=== PATIENT | female | born 1955 | race Hispanic/Latino ===

== ENCOUNTER 2023-09-27 12:16 | Inpatient (IN) | payer OTHER ==
[~2023-09-27] VITALS: Ht 154.9 cm; Wt 64.9 kg
[2023-09-27] MEDS: SODIUM CHLORIDE 0.9% 1000ML 1,000 ML IV STA (12:44)
[2023-09-27] MEDS: DICYCLOMINE HCL 20 MG/2 ML VIAL IM ONE (12:45)
[2023-09-27] MEDS: ONDANSETRON HCL INJ 2MG/ML 2ML 2 MG/ML VIAL IV PRN (12:51)
[2023-09-27 13:00] LABS: BASOPHILS % 0.5 % (0.0-1.0); EOSINOPHILS # (AUTO) 0.1 (0.0-0.4); EOSINOPHILS % 1.4 % (0.0-6.0); HEMATOCRIT 43.7 % (34.2-44.1); HEMOGLOBIN 13.6 g/dL (12.0-16.0); LYMPHOCYTES # (AUTO) 1.3 (1.0-3.2); LYMPHOCYTES % 31.6 % (18.0-39.1); MEAN CORPUSCULAR HGB CONC 31.1 g/dL (31-35); MEAN CORPUSCULAR VOLUME 83.4 fL (81-99); MONOCYTES # (AUTO) 0.5 (0.2-0.8); MONOCYTES % 11.2 % (4.4-11.3); NEUTROPHILS # (AUTO) 2.3 (2.1-6.9); NEUTROPHILS % 55.1 % (38.7-80.0); PLATELET COUNT 218 x10e3/uL (140-360); RED BLOOD COUNT 5.24 x10e6/uL (3.6-5.1); RED CELL DISTRIBUTION WIDTH 13.9 % (11.7-14.4); WHITE BLOOD COUNT 4.21 x10e3/uL (4.8-10.8)
[2023-09-27 13:06] LABS: CLARITY,URINE CLEAR (CLEAR); COLOR,URINE YELLOW (YELLOW); LEUKOCYTE ESTERASE ,URINE NEGATIVE (NEGATIVE); NITRITE,URINE NEGATIVE (NEGATIVE); PH,URINE 7 (5 - 7); PROTEIN,URINE DIPSTICK NEGATIVE (NEGATIVE)
[2023-09-27 13:07] LABS: BILIRUBIN,URINE NEGATIVE (NEGATIVE); GLUCOSE, URINE NEGATIVE (NEGATIVE); KETONES,URINE NEGATIVE (NEGATIVE); URINE UROBILINOGEN 0.2 mg/dL (0.2 - 1)
[2023-09-27 13:13] LABS: BACTERIA,URINE FEW /HPF; EPITHELIAL CELLS,URINE FEW /LPF; RBC,URINE 0-5 /HPF (0-5); WBC,URINE (MAN) 0-5 /HPF (0-5)
[2023-09-27 13:23] LABS: ALBUMIN 4.3 g/dL (3.5-5.0); ALBUMIN/GLOBULIN RATIO 1.1 (0.8-2.0); ANION GAP 15.6 mmol/L (8-16); BILIRUBIN,TOTAL 2.1 mg/dL (0.2-1.2); CALCIUM 9.6 mg/dL (8.4-10.2); CREATININE, SERUM 0.74 mg/dL (0.57-1.11); POTASSIUM 3.6 mmol/L (3.5-5.1); TOTAL PROTEIN 8.1 g/dL (6.5-8.1)
[2023-09-27] MEDS: SODIUM CHLORIDE 0.9% 1000ML 1,000 ML IV SCH ×2 (14:40→17:06)
[2023-09-27] MEDS: METRONIDAZOLE 750MG/NS 150ML 150 ML IV SCH (14:40)
[2023-09-27] MEDS ORDERED: ONDANSETRON HCL INJ 2MG/ML 2ML 2 MG/ML VIAL IV PRN (14:45)
[2023-09-27] MEDS ORDERED: Morphine 4mg INJECTION 4 MG/ML INJ IV PRN (14:45)
[2023-09-27 15:35] VITALS: PULSE 62; RESP 16; O2SAT 97
[2023-09-27 16:30] VITALS: BP 137/85; PULSE 58; RESP 18; TEMP 98.4; O2SAT 100
[2023-09-27] MEDS ORDERED: NO HOME MEDICATIONS (17:43)
[2023-09-27] MEDS: DEXTROSE 5%/0.45% SOD CHL 1,000 ML IV SCH (18:18)
[2023-09-27 20:00] VITALS: BP 137/85; PULSE 58; RESP 18; TEMP 98.4; O2SAT 100
[2023-09-27] MEDS: METRONIDAZOLE 500MG/NS 100ML 100 ML IV SCH (22:25)
[2023-09-27 22:27] VITALS: BP 129/81; PULSE 73; RESP 20; TEMP 98.1; O2SAT 97
[2023-09-28] VITALS (8 sets, daily range): BP systolic 103–118; BP diastolic 59–68; PULSE 59–72; RESP 16–20; TEMP 97.5–98.3; O2SAT 94–99
[2023-09-28 04:48] LABS: BASOPHILS % 0.2 % (0.0-1.0); EOSINOPHILS # (AUTO) 0.1 (0.0-0.4); EOSINOPHILS % 2.4 % (0.0-6.0); HEMATOCRIT 36.5 % (34.2-44.1); HEMOGLOBIN 11.6 g/dL (12.0-16.0); LYMPHOCYTES % 22.8 % (18.0-39.1); MEAN CORPUSCULAR HGB CONC 31.8 g/dL (31-35); MEAN CORPUSCULAR VOLUME 81.7 fL (81-99); MONOCYTES # (AUTO) 0.3 (0.2-0.8); MONOCYTES % 5.5 % (4.4-11.3); NEUTROPHILS # (AUTO) 3.1 (2.1-6.9); NEUTROPHILS % 68.7 % (38.7-80.0); PLATELET COUNT 187 x10e3/uL (140-360); RED BLOOD COUNT 4.47 x10e6/uL (3.6-5.1); RED CELL DISTRIBUTION WIDTH 14.3 % (11.7-14.4); WHITE BLOOD COUNT 4.51 x10e3/uL (4.8-10.8)
[2023-09-28 05:07] LABS: ANION GAP 10.3 mmol/L (8-16); BILIRUBIN,TOTAL 1.5 mg/dL (0.2-1.2); CALCIUM 8.2 mg/dL (8.4-10.2); CHOL/HDL RATIO 3.5 (3.0-3.6); CREATININE, SERUM 0.72 mg/dL (0.57-1.11)
[2023-09-28 05:10] LABS: POTASSIUM 3.3 mmol/L (3.5-5.1)
[2023-09-28 05:11] LABS: ALBUMIN 3.1 g/dL (3.5-5.0); TOTAL PROTEIN 6.1 g/dL (6.5-8.1)
[2023-09-28] MEDS ORDERED: MIDAZOLAM HCL 2 MG/2 ML VIAL ONE (13:10)
[2023-09-28] MEDS ORDERED: FENTANYL CITRATE/PF 100MCG/2 ML INJ ONE (13:10)
[2023-09-28] MEDS ORDERED: ROCURONIUM BROMIDE 10 MG/ML 5ML VIAL IV ONE (13:14)
[2023-09-28] MEDS ORDERED: LIDOCAINE HCL 2% LOCAL INJ 5 ML SDV VIAL INJ ONE (13:14)
[2023-09-28] MEDS ORDERED: PROPOFOL IV EMULSION 10 MG/ML 20 ML VIAL ONE (13:14)
[2023-09-28] MEDS ORDERED: SEVOFLURANE INHAL SOLN 250 ML PEN BTL ONE (13:14)
[2023-09-28] MEDS ORDERED: BUPIVACAINE 0.25% 30ML SDV ONE (13:16)
[2023-09-28] MEDS ORDERED: SUGAMMADEX SODIUM 200 MG/2 ML VIAL IV ONE (15:45)
[2023-09-28] MEDS ORDERED: ONDANSETRON HCL INJ 2MG/ML 2ML 2 MG/ML VIAL IV PRN (16:00)
[2023-09-28] MEDS ORDERED: HYDROMORPHONE 1MG/1ML INJ IV PRN (16:00)
[2023-09-28] MEDS: ACETAMINOPHEN 1000 MG/100 ML IV ONE (16:17)
[2023-09-28] MEDS: KETOROLAC TROMETHAMINE 30 MG/ML VIAL IV PRN (16:23)
[2023-09-28] MEDS: METOCLOPRAMIDE HCL 10 MG/2ML VIAL ONE (16:25)
[2023-09-28] MEDS: FENTANYL CITRATE/PF 100MCG/2 ML INJ ONE (16:28)
[2023-09-28] MEDS: ACETAMINOPHEN 1000 MG/100 ML 100 ML IV ONE (17:04)
[2023-09-28] MEDS: KETOROLAC TROMETHAMINE 30 MG/ML VIAL ONE (17:05)
[2023-09-28 17:51] LABS: HEPATITIS B SURFACE AG (P) NONREACTIVE; HEPATITIS C ANTIBODY NONREACTIVE
[2023-09-29] VITALS: BP 116/63; PULSE 64; RESP 18; TEMP 98.5; O2SAT 98
[2023-09-29 04:00] VITALS: BP 125/71; PULSE 61; RESP 18; TEMP 98; O2SAT 99
[2023-09-29 05:28] LABS: BASOPHILS % 0.3 % (0.0-1.0); EOSINOPHILS % 0.6 % (0.0-6.0); HEMATOCRIT 34.7 % (34.2-44.1); LYMPHOCYTES % 15.3 % (18.0-39.1); MEAN CORPUSCULAR HEMOGLOBIN 26.3 pg (28-32); MEAN CORPUSCULAR HGB CONC 31.7 g/dL (31-35); MEAN CORPUSCULAR VOLUME 82.8 fL (81-99); MONOCYTES # (AUTO) 0.4 (0.2-0.8); MONOCYTES % 6.5 % (4.4-11.3); NEUTROPHILS # (AUTO) 4.9 (2.1-6.9); NEUTROPHILS % 76.8 % (38.7-80.0); PLATELET COUNT 160 x10e3/uL (140-360); RED BLOOD COUNT 4.19 x10e6/uL (3.6-5.1); RED CELL DISTRIBUTION WIDTH 14.4 % (11.7-14.4); WHITE BLOOD COUNT 6.34 x10e3/uL (4.8-10.8)
[2023-09-29 05:49] LABS: ALANINE AMINOTRANSFERASE 375 IU/L (0-55); ALBUMIN 3.3 g/dL (3.5-5.0); ALBUMIN/GLOBULIN RATIO 1.3 (0.8-2.0); ALKALINE PHOSPHATASE 128 IU/L (40-150); ANION GAP 9.4 mmol/L (8-16); BILIRUBIN,TOTAL 0.8 mg/dL (0.2-1.2); BLOOD UREA NITROGEN < 5 mg/dL (7-26); CALCIUM 8.6 mg/dL (8.4-10.2); CARBON DIOXIDE 26 mmol/L (22-29); CHLORIDE 105 mmol/L (98-107); EST GLOMERULAR FILTRATION RATE 95 ML/MIN (>=60); GLUCOSE 159 mg/dL (74-118); SODIUM 137 mmol/L (136-145); TOTAL PROTEIN 5.9 g/dL (6.5-8.1)
[2023-09-29 05:53] LABS: BUN/CREATININE RATIO 7 (6-25); POTASSIUM 3.4 mmol/L (3.5-5.1)
[2023-09-29 07:41] VITALS: BP 128/72; PULSE 72; RESP 17; TEMP 98.4; O2SAT 98
[2023-09-29 09:00] VITALS: BP 128/72; PULSE 72; RESP 17; TEMP 98.4; O2SAT 98
[2023-09-29 11:54] VITALS: BP 124/70; PULSE 66; RESP 18; TEMP 98.4; O2SAT 98
[2023-09-29] MEDS: HYDROCODONE/APAP 7.5MG-325MG 1 EA TAB PO PRN (13:14)
== END 2023-09-29 14:25 | disposition home or self-care (01) | DRG 419 ==
LOC: ER 12:27 → ERHOLD 14:33 → MED/SURG 16:37
PROVIDERS: ADMIT Internal Medicine; ATTEND Internal Medicine
PROC: BF101ZZ Fluoroscopy of Bile Ducts using Low Osmolar Contrast (ICD-10-PCS; 2023-09-28)
PROC: 0FT44ZZ Resection of Gallbladder, Percutaneous Endoscopic Approach (ICD-10-PCS; principal; 2023-09-28 14:37)
DX: K80.00 Calculus of gallbladder with acute cholecystitis without obstruction (principal); E78.5 Hyperlipidemia, unspecified; E86.0 Dehydration; E78.00 Pure hypercholesterolemia, unspecified; Z20.822 Contact with and (suspected) exposure to COVID-19
CPT/HCPCS: 36415; 74181; 76705; 80053; 80061; 81001; 83690; 85025; 88304; 94799; 99284; C1766; J0696; J1885; J2001; J2250; J2405; J2543; J2765; J7030; U0002